=== PATIENT | female | born 1990 ===

== ENCOUNTER 2021-06-01 13:07 | Emergency (ER) | payer SELFPAY ==
[2021-06-01 13:18] VITALS: TEMP 98.2
[2021-06-01] MEDS ORDERED: FLEXERIL 1010 MG/TAB PO (13:40)
[2021-06-01 14:01] VITALS: BP 118/81; PULSE 81
== END 2021-06-01 14:01 | disposition home or self-care (01) ==
LOC: COL.ER 13:07
DX: S46.911A Strain of unspecified muscle, fascia and tendon at shoulder and upper arm level, right arm, initial encounter (principal); M62.830 Muscle spasm of back; Z87.891 Personal history of nicotine dependence; X50.0XXA Overexertion from strenuous movement or load, initial encounter; Y93.F2 Activity, caregiving, lifting; Y92.59 Other trade areas as the place of occurrence of the external cause; Y99.0 Civilian activity done for income or pay

== ENCOUNTER 2021-09-10 11:38 | Emergency (ER) | payer OTHER ==
[~2021-09-10] VITALS: Ht 154.9 cm; Wt 63.6 kg
[~2021-09-10 11:38] MED LIST: FLEXERIL 1010 MG/TAB PO
[2021-09-10] MEDS ORDERED: AMOXICILLIN 50500 MG PO (12:53)
[2021-09-10] MEDS ORDERED: KEPPRA 500MG500 MG PO ×2 (12:53→16:00)
[2021-09-10 12:57] LABS: BASO # 0.1 K/mm3 (0.0-0.2); BASO % 0.4 % (0.0-2.0); EOS % 0.2 % (0.0-4.0); GRAN # 14.5 K/mm3 (1.4-6.5); GRAN % 79.4 % (42.2-75.2); HEMATOCRIT 42.9 % (37.0-47.0); HEMOGLOBIN 14.3 g/dl (12.5-16.0); LYMPH # 2.4 K/mm3 (1.2-3.4); MEAN CELL VOLUME 89 fl (80.0-100.0); MEAN CORPUSCULAR HEMOGLOBIN 30 pg (27-31); MEAN CORPUSCULAR HGB CONC 33 g/dl (33.0-37.0); MEAN PLATELET VOLUME 11.1 fl (7.4-10.4); MONO # 1.2 K/mm3 (0.1-0.6); MONO % 6.6 % (1.7-9.3); PLATELET COUNT 301 K/mm3 (130-400); REDCELL DISTRIBUTION WIDTH-CV 12.2 % (11.5-14.5)
[2021-09-10 13:10] LABS: ALBUMIN 4.3 gm/dL (3.5-5.0); BILIRUBIN,TOTAL 0.8 mg/dL (0.2-1.2); CALCIUM 9.2 mg/dL (8.4-10.2); CREATININE, serum 0.74 mg/dL (0.57-1.11); POTASSIUM 3.4 mmol/L (3.5-4.5); TOTAL PROTEIN 8.1 gm/dL (6.2-8.1)
[2021-09-10 15:27] VITALS: BP 104/69
[2021-09-10] MEDS ORDERED: ZOFRAN ODT4 MG PO ×2 (15:58→16:00)
[2021-09-10] MEDS ORDERED: AMOXICILLIN 25250 MG PO (16:00)
[2021-09-10 16:12] VITALS: PULSE 72
== END 2021-09-10 16:14 | disposition home or self-care (01) ==
LOC: COL.ER 11:38
PROVIDERS: Personal Emergency Response Attendant
DX: R56.9 Unspecified convulsions (principal); H66.91 Otitis media, unspecified, right ear; R11.0 Nausea; Z28.310 Unvaccinated for COVID-19
CPT/HCPCS: J0696; J1953; J2405